=== PATIENT | male | born 1965 | race Caucasian/White ===

== ENCOUNTER 2018-01-02 12:42 | Inpatient (IN) | payer BC ==
[2018-01-02 14:30] LABS: ADD MAN DIFF? NO
[2018-01-02 14:31] LABS: BASOPHILS % 0.5 % (0.0-2.0); EOSINOPHILS # 0.1 10^3/ul (0.0-0.5); EOSINOPHILS % 1.6 % (0.0-7.0); HEMATOCRIT 47.1 % (42.0-52.0); HEMOGLOBIN 17.4 g/dl (14.0-18.0); LYMPHOCYTES # 0.8 10^3/ul (0.8-2.9); LYMPHOCYTES % 14.6 % (15.0-51.0); MEAN CORPUSCULAR HEMOGLOBIN 31.8 pg (29.0-33.0); MEAN CORPUSCULAR HGB CONC 36.9 g/dl (32.0-37.0); MEAN CORPUSCULAR VOLUME 86.1 fl (82.0-101.0); MEAN PLATELET VOLUME 10.4 fl (7.4-10.4); MONOCYTE # 1.2 10^3/ul (0.3-0.9); MONOCYTES % 20.7 % (0.0-11.0); NEUTROPHIL # 3.5 10^3/ul (1.6-7.5); NEUTROPHILS % 62.2 % (39.0-77.0); PLATELET COUNT 239 10^3/UL (140-415); RED BLOOD COUNT 5.47 10^6/ul (4.70-6.10); RED CELL DISTRIBUTION WIDTH 11.6 % (11.5-14.5)
[2018-01-02 14:31] LABS: WHITE BLOOD COUNT 5.6 10^3/ul (4.8-10.8)
[2018-01-02] MEDS: SODIUM CHLORIDE 0.9% 1L BAG IV* (14:31)
[2018-01-02 14:35] LABS: INR 0.95; PROTIME 12.8 Sec (11.9-14.9)
[2018-01-02 14:36] LABS: PARTIAL THROMBOPLASTIN TIME 34.2 Sec (25.0-35.0)
[2018-01-02 14:40] LABS: ALANINE AMINOTRANSFERASE 38 IU/L (13-69); ALBUMIN 4.7 g/dl (3.3-4.9); ALKALINE PHOSPHATASE 86 IU/L (42-121); ANION GAP 22 (8-16); ASPARTATE AMINO TRANSFERASE 38 IU/L (15-46); BILIRUBIN,INDIRECT 0.7 mg/dl (0-1.1); BILIRUBIN,TOTAL 0.7 mg/dl (0.2-1.3); BLOOD UREA NITROGEN 12 mg/dl (7-20); CALCIUM 9.1 mg/dl (8.4-10.2); CARBON DIOXIDE 22 mmol/L (21-31); CHLORIDE 96 mmol/L (97-110); CREATININE 1.01 mg/dl (0.61-1.24); GLUCOSE 151 mg/dl (70-220); POTASSIUM 3.3 mmol/L (3.5-5.1); SODIUM 137 mmol/L (135-144); TOTAL PROTEIN 8.3 g/dl (6.1-8.1)
[2018-01-02 14:51] LABS: TROPONIN-I 0.014 ng/ml (0.00-0.12)
[2018-01-02] MEDS: DILTIAZEM 25 MG INJ IV ×2 (15:07→17:47)
[2018-01-02 16:48] LABS: LACTIC ACID 1.1 mmol/L (0.5-2.0)
[2018-01-02] MEDS: SOD CHLORIDE 0.9% 1,000 ML IV (16:52)
[2018-01-02] MEDS ORDERED: PROVENTIL HFA 6.7GM INHALER INH (17:00)
[2018-01-02] MEDS ORDERED: ONDANSETRON 4 MG INJ IV ×2 (17:00)
[2018-01-02] MEDS ORDERED: NACL 0.9% 3 ML SYG IV (17:00)
[2018-01-02] MEDS ORDERED: DOCUSATE SODIUM 100 MG CAP PO (17:00)
[2018-01-02] MEDS ORDERED: LORAZEPAM 2 MG INJ IV (17:00)
[2018-01-02] MEDS ORDERED: ACETAMINOPHEN 325 MG TAB PO ×2 (17:00)
[2018-01-02] MEDS ORDERED: NITROGLYCERIN (SL) 0.4 MG TAB SL (17:00)
[2018-01-02] MEDS ORDERED: NA PHOSPHATE/BIPHOS 133 ML ENEMA PR (17:00)
[2018-01-02] MEDS ORDERED: MAGNESIUM HYDROXIDE 30ML CUP PO (17:00)
[2018-01-02] MEDS ORDERED: morphine 2 MG INJ IV (17:00)
[2018-01-02] MEDS ORDERED: hydrALAzine 20 MG INJ IV (17:00)
[2018-01-02] MEDS ORDERED: HYDROCODONE/APAP (5/325) TAB PO (17:00)
[2018-01-02] MEDS ORDERED: ALBUTEROL/IPRATROPIUM (NEB) 3 ML AMP HHN (17:00)
[2018-01-02] MEDS ORDERED: POTASSIUM CHLORIDE 50 ML IVPB (17:30)
[2018-01-02 17:38] LABS: FREE T4 (FREE THYROXINE) 1.53 ng/dl (0.64-1.79)
[2018-01-02] MEDS: SOD CHLORIDE 0.45% 1,000 ML IV (17:46)
[2018-01-02] MEDS: POTASSIUM CHLORIDE (SR) 20 MEQ TAB PO (17:47)
[2018-01-02 18:54] LABS: LACTIC ACID 1.2 mmol/L (0.5-2.0)
[2018-01-02] MEDS: POTASSIUM CHLORIDE 40 MEQ in DEXTROSE 5% 250 ML IVPB (19:35)
[2018-01-02] MEDS: DILTIAZEM-D5W 125MG/125ML DRIP 125 ML IV (20:00)
[2018-01-02] MEDS: HEPARIN 5,000 UNIT/0.5 ML VIAL SC ×2 (21:00→21:55)
[2018-01-02] MEDS ORDERED: SALMETEROL/FLUTICASONE 250/50 INHA INH (21:00)
[2018-01-02] MEDS: FAMOTIDINE 20 MG TAB PO (21:50)
[2018-01-02] MEDS: LEVOFLOXACIN 750MG/D5W (PMX) 150 ML IVPB ×2 (21:50→21:57)
[2018-01-03 08:27] LABS: ADD MAN DIFF? NO
[2018-01-03 08:32] LABS: BASOPHILS % 0.4 % (0.0-2.0); EOSINOPHILS # 0.1 10^3/ul (0.0-0.5); EOSINOPHILS % 1.2 % (0.0-7.0); HEMATOCRIT 38.6 % (42.0-52.0); HEMOGLOBIN 13.8 g/dl (14.0-18.0); LYMPHOCYTES % 20.4 % (15.0-51.0); MEAN CORPUSCULAR HEMOGLOBIN 31.3 pg (29.0-33.0); MEAN CORPUSCULAR HGB CONC 35.8 g/dl (32.0-37.0); MEAN CORPUSCULAR VOLUME 87.5 fl (82.0-101.0); MEAN PLATELET VOLUME 9.6 fl (7.4-10.4); MONOCYTE # 0.8 10^3/ul (0.3-0.9); MONOCYTES % 16.4 % (0.0-11.0); NEUTROPHIL # 3.1 10^3/ul (1.6-7.5); NEUTROPHILS % 61.4 % (39.0-77.0); PLATELET COUNT 180 10^3/UL (140-415); RED BLOOD COUNT 4.41 10^6/ul (4.70-6.10); RED CELL DISTRIBUTION WIDTH 11.7 % (11.5-14.5)
[2018-01-03] MEDS: SOD CHLORIDE 0.45% 1,000 ML IV (08:37)
[2018-01-03] MEDS: HEPARIN 5,000 UNIT/0.5 ML VIAL SC (08:39)
[2018-01-03] MEDS: FAMOTIDINE 20 MG TAB PO (08:39)
[2018-01-03 08:52] LABS: ANION GAP 14 (8-16); BLOOD UREA NITROGEN 7 mg/dl (7-20); CALCIUM 8.1 mg/dl (8.4-10.2); CARBON DIOXIDE 23 mmol/L (21-31); CHLORIDE 105 mmol/L (97-110); GLUCOSE 101 mg/dl (70-220); MAGNESIUM 1.8 mg/dl (1.7-2.5); PHOSPHORUS 2.6 mg/dl (2.5-4.9); POTASSIUM 3.6 mmol/L (3.5-5.1); SODIUM 138 mmol/L (135-144)
[2018-01-03 08:54] LABS: CHOL/HDL RATIO 5.2 RATIO; HDL CHOLESTEROL 24 mg/dl (28-71); LDL CHOLESTEROL,CALCULATED 82 mg/dl; TRIGLYCERIDES 95 mg/dl (0-149)
[2018-01-03 08:54] LABS: CHOLESTEROL 125 mg/dl (100-200)
[2018-01-03 09:19] LABS: HEMOGLOBIN A1C 5.8 % (0-5.9)
[2018-01-03] MEDS ORDERED: METOPROLOL (XL) 50 MG TAB PO (09:30)
== END 2018-01-03 11:07 | disposition home or self-care (01) | DRG 308 ==
LOC: MS4 16:53 → E/R 12:42
DX: I48.0 Paroxysmal atrial fibrillation (principal); J18.9 Pneumonia, unspecified organism; E87.6 Hypokalemia; I10 Essential (primary) hypertension
CPT/HCPCS: 36415; 71045; 80048; 80053; 80061; 83036; 83605; 83735; 84100; 84439; 84443; 84484; 85025; 85610; 85730; 87040; 93005; 93306; 96374; 96375; 96376; 99291-25

== ENCOUNTER 2018-01-06 20:07 | Emergency (ER) | payer BC ==
[2018-01-06] MEDS: METOPROLOL 5 MG INJ IV (20:37)
[2018-01-06] MEDS: ASPIRIN 325 MG TAB PO (22:05)
[2018-01-06 22:44] LABS: ADD MAN DIFF? NO
[2018-01-06 22:46] LABS: WHITE BLOOD COUNT 10.5 10^3/ul (4.8-10.8)
[2018-01-06 22:46] LABS: BASOPHIL # 0.1 10^3/ul (0.0-0.1); BASOPHILS % 0.5 % (0.0-2.0); EOSINOPHILS # 0.5 10^3/ul (0.0-0.5); EOSINOPHILS % 5.1 % (0.0-7.0); HEMATOCRIT 41.5 % (42.0-52.0); HEMOGLOBIN 14.9 g/dl (14.0-18.0); LYMPHOCYTES # 1.6 10^3/ul (0.8-2.9); LYMPHOCYTES % 15.3 % (15.0-51.0); MEAN CORPUSCULAR HEMOGLOBIN 31.3 pg (29.0-33.0); MEAN CORPUSCULAR HGB CONC 35.9 g/dl (32.0-37.0); MEAN CORPUSCULAR VOLUME 87.2 fl (82.0-101.0); MEAN PLATELET VOLUME 9.6 fl (7.4-10.4); MONOCYTE # 1.1 10^3/ul (0.3-0.9); MONOCYTES % 10.2 % (0.0-11.0); NEUTROPHIL # 7.2 10^3/ul (1.6-7.5); NEUTROPHILS % 68.6 % (39.0-77.0); PLATELET COUNT 280 10^3/UL (140-415); RED BLOOD COUNT 4.76 10^6/ul (4.70-6.10); RED CELL DISTRIBUTION WIDTH 11.6 % (11.5-14.5)
[2018-01-06] MEDS: METOPROLOL (XL) 25 MG TAB PO (22:59)
[2018-01-06 23:05] LABS: ANION GAP 15 (8-16); BLOOD UREA NITROGEN 5 mg/dl (7-20); CARBON DIOXIDE 22 mmol/L (21-31); CHLORIDE 103 mmol/L (97-110); CREATININE 0.75 mg/dl (0.61-1.24); GLUCOSE 140 mg/dl (70-220); POTASSIUM 4.1 mmol/L (3.5-5.1); SODIUM 136 mmol/L (135-144)
[2018-01-06 23:16] LABS: B-TYPE NATRIURETIC PEPTIDE 396 PG/ML (0-125)
[2018-01-06 23:17] LABS: TROPONIN-I < 0.012 ng/ml (0.00-0.12)
== END 2018-01-07 00:16 | disposition home or self-care (01) ==
LOC: E/R 01-07 00:16
DX: I47.1 Supraventricular tachycardia (principal); R06.00 Dyspnea, unspecified; Z87.891 Personal history of nicotine dependence
CPT/HCPCS: 36415; 71045; 80048; 83880; 84484; 85025; 93005; 96374; 99285-25